=== PATIENT | male | born 1970 | race Two or more races ===

== ENCOUNTER 2023-01-10 11:08 | Emergency (ER) | payer OTHER ==
[~2023-01-10] VITALS: Ht 160 cm; Wt 67.1 kg
== END 2023-01-10 15:48 | disposition home or self-care (01) ==
LOC: ER 11:08
DX: R53.81 Other malaise (principal); E13.69 Other specified diabetes mellitus with other specified complication; Z20.822 Contact with and (suspected) exposure to COVID-19

== ENCOUNTER 2023-12-26 10:17 | Emergency (ER) | payer OTHER ==
[~2023-12-26] VITALS: Ht 160 cm; Wt 67.1 kg
[2023-12-26] MEDS ORDERED: ACTOS15 MG (11:05)
[2023-12-26] MEDS ORDERED: LIPITOR40 M1 (11:05)
[2023-12-26] MEDS ORDERED: AZITHROMYCIN 500 MG TABLET PO ONE (12:00)
[2023-12-26] MEDS ORDERED: GUAIFENESIN/DEXTROMETHORPHAN 100 MG/5 ML ML PO ONE (12:00)
[2023-12-26 13:04] LABS: HEMATOCRIT 43.9 % (39.0-48.0); HEMOGLOBIN 15.6 g/dL (13-16.00); MEAN CELL VOLUME 86.9 fL (80.0-100.00); MEAN CORPUSCULAR HEMOGLOBIN 30.9 pg (27.00-32.0); MEAN CORPUSCULAR HGB CONC 35.6 g/dl (32.0-36.0); PLATELET COUNT 210 K/uL (150-450); RED BLOOD COUNT 5.05 M/uL (4.00-6.00); RED CELL DISTRIBUTION WIDTH 13.3 % (11.5-14.5)
[2023-12-26] MEDS ORDERED: ZITHROMAX500 MG PO (13:34)
[2023-12-26] MEDS ORDERED: TUSNEL LIQUID178 ML PO (13:34)
== END 2023-12-26 13:45 | disposition home or self-care (01) ==
LOC: ER 10:17
PROVIDERS: General Practice
DX: J06.9 Acute upper respiratory infection, unspecified (principal); I11.9 Hypertensive heart disease without heart failure; E11.9 Type 2 diabetes mellitus without complications; Z20.822 Contact with and (suspected) exposure to COVID-19